=== PATIENT | female | born 1995 | race Two or more races ===

== ENCOUNTER 2017-03-31 19:17 | Emergency (ER) | payer SELFPAY ==
[~2017-03-31] VITALS: Ht 165.1 cm; Wt 63.5 kg
== END 2017-03-31 21:14 | disposition home or self-care (01) ==
LOC: CED 19:17 → CFTX 19:17
DX: J02.0 Streptococcal pharyngitis (principal)
CPT/HCPCS: 87880; 96372; 99283; J0561